=== PATIENT | male | born 1945 | race Caucasian/White ===

== ENCOUNTER 2017-12-02 22:56 | Inpatient (IN) | payer MEDICARE, OTHER ==
[2017-12-02] MEDS: DILTIAZEM 25 MG INJ IV (23:38)
[2017-12-02 23:40] LABS: ADD MAN DIFF? NO
[2017-12-02 23:46] LABS: WHITE BLOOD COUNT 10.3 10^3/ul (4.8-10.8)
[2017-12-02 23:46] LABS: BASOPHIL # 0.1 10^3/ul (0.0-0.1); BASOPHILS % 0.6 % (0.0-2.0); EOSINOPHILS # 0.1 10^3/ul (0.0-0.5); EOSINOPHILS % 1.3 % (0.0-7.0); HEMATOCRIT 50.7 % (42.0-52.0); LYMPHOCYTES # 3.2 10^3/ul (0.8-2.9); LYMPHOCYTES % 30.6 % (15.0-51.0); MEAN CORPUSCULAR HEMOGLOBIN 29.8 pg (29.0-33.0); MEAN CORPUSCULAR HGB CONC 33.5 g/dl (32.0-37.0); MEAN CORPUSCULAR VOLUME 88.9 fl (82.0-101.0); MEAN PLATELET VOLUME 10.4 fl (7.4-10.4); MONOCYTE # 0.9 10^3/ul (0.3-0.9); MONOCYTES % 8.6 % (0.0-11.0); NEUTROPHILS % 57.8 % (39.0-77.0); PLATELET COUNT 266 10^3/UL (140-415); RED CELL DISTRIBUTION WIDTH 13.2 % (11.5-14.5)
[2017-12-03 00:07] LABS: ALANINE AMINOTRANSFERASE 41 IU/L (13-69); ALBUMIN 4.6 g/dl (3.3-4.9); ALBUMIN/GLOBULIN RATIO 1.43; ALKALINE PHOSPHATASE 59 IU/L (42-121); ANION GAP 16 (8-16); ASPARTATE AMINO TRANSFERASE 20 IU/L (15-46); BILIRUBIN,INDIRECT 0.2 mg/dl (0-1.1); BILIRUBIN,TOTAL 0.2 mg/dl (0.2-1.3); BLOOD UREA NITROGEN 16 mg/dl (7-20); CALCIUM 10.1 mg/dl (8.4-10.2); CARBON DIOXIDE 30 mmol/L (21-31); CHLORIDE 99 mmol/L (97-110); CREATININE 1.02 mg/dl (0.61-1.24); GLUCOSE 116 mg/dl (70-220); POTASSIUM 4.1 mmol/L (3.5-5.1); SODIUM 141 mmol/L (135-144); TOTAL PROTEIN 7.8 g/dl (6.1-8.1)
[2017-12-03 00:17] LABS: B-TYPE NATRIURETIC PEPTIDE 129 PG/ML (0-125)
[2017-12-03 00:40] LABS: TROPONIN-I < 0.012 ng/ml (0.00-0.12)
[2017-12-03] MEDS ORDERED: ACETAMINOPHEN 325 MG TAB PO (02:30)
[2017-12-03] MEDS ORDERED: morphine 2 MG INJ IV (02:30)
[2017-12-03] MEDS ORDERED: NITROGLYCERIN (SL) 0.4 MG TAB SL (02:30)
[2017-12-03] MEDS ORDERED: ONDANSETRON 4 MG TAB PO (02:30)
[2017-12-03] MEDS ORDERED: DOCUSATE SODIUM 100 MG CAP PO (02:30)
[2017-12-03] MEDS ORDERED: BISACODYL (EC) 5 MG TAB PO (02:30)
[2017-12-03] MEDS: LORAZEPAM 2 MG INJ IV ×2 (02:43→04:58)
[2017-12-03 05:50] LABS: ADD MAN DIFF? NO
[2017-12-03 05:52] LABS: BASOPHILS % 0.4 % (0.0-2.0); EOSINOPHILS # 0.1 10^3/ul (0.0-0.5); EOSINOPHILS % 1.6 % (0.0-7.0); HEMATOCRIT 46.3 % (42.0-52.0); HEMOGLOBIN 15.4 g/dl (14.0-18.0); LYMPHOCYTES # 2.7 10^3/ul (0.8-2.9); LYMPHOCYTES % 30.2 % (15.0-51.0); MEAN CORPUSCULAR HEMOGLOBIN 29.7 pg (29.0-33.0); MEAN CORPUSCULAR HGB CONC 33.3 g/dl (32.0-37.0); MEAN CORPUSCULAR VOLUME 89.2 fl (82.0-101.0); MEAN PLATELET VOLUME 10.4 fl (7.4-10.4); MONOCYTE # 0.7 10^3/ul (0.3-0.9); MONOCYTES % 7.5 % (0.0-11.0); NEUTROPHIL # 5.3 10^3/ul (1.6-7.5); NEUTROPHILS % 59.4 % (39.0-77.0); PLATELET COUNT 228 10^3/UL (140-415); RED BLOOD COUNT 5.19 10^6/ul (4.70-6.10); RED CELL DISTRIBUTION WIDTH 13.2 % (11.5-14.5)
[2017-12-03 05:52] LABS: WHITE BLOOD COUNT 8.9 10^3/ul (4.8-10.8)
[2017-12-03 06:14] LABS: MAGNESIUM 1.8 mg/dl (1.7-2.5)
[2017-12-03 06:16] LABS: ALANINE AMINOTRANSFERASE 36 IU/L (13-69); ALBUMIN 3.6 g/dl (3.3-4.9); ALBUMIN/GLOBULIN RATIO 1.28; ALKALINE PHOSPHATASE 48 IU/L (42-121); ANION GAP 12 (8-16); ASPARTATE AMINO TRANSFERASE 21 IU/L (15-46); BILIRUBIN,INDIRECT 0.5 mg/dl (0-1.1); BILIRUBIN,TOTAL 0.5 mg/dl (0.2-1.3); BLOOD UREA NITROGEN 15 mg/dl (7-20); CARBON DIOXIDE 27 mmol/L (21-31); CHLORIDE 102 mmol/L (97-110); GLUCOSE 110 mg/dl (70-220); POTASSIUM 3.7 mmol/L (3.5-5.1); SODIUM 137 mmol/L (135-144); TOTAL PROTEIN 6.4 g/dl (6.1-8.1)
[2017-12-03 06:17] LABS: CHOLESTEROL 130 mg/dl (100-200)
[2017-12-03 06:17] LABS: CHOL/HDL RATIO 3.8 RATIO; HDL CHOLESTEROL 34 mg/dl (31-75); LDL CHOLESTEROL,CALCULATED 82 mg/dl; TRIGLYCERIDES 69 mg/dl (0-149)
[2017-12-03 06:27] LABS: CREATINE KINASE < 20 IU/L (23-200)
[2017-12-03 06:30] LABS: CK-MB 0.43 ng/ml (0.0-2.4); TROPONIN-I < 0.012 ng/ml (0.00-0.12)
[2017-12-03 07:41] LABS: HEMOGLOBIN A1C 5.5 % (0-5.9)
[2017-12-03] MEDS: NACL 0.9% 3 ML SYG IV (08:28)
[2017-12-03] MEDS: ASPIRIN 81 MG TAB PO (08:31)
[2017-12-03] MEDS ORDERED: NON-FORMULARY/PATIENT OWN MED (Olmesartan-Amlodipine-HCTZ (Tribenzor) 1 TAB) PO (10:00)
[2017-12-03] MEDS: DRONEDARONE HYDROCHLORIDE 400 MG TAB PO ×2 (11:22→22:27)
[2017-12-03] MEDS: POTASSIUM CHLORIDE (SR) 20 MEQ TAB PO ×2 (11:22→11:27)
[2017-12-03] MEDS: MAGNESIUM SULFATE 1 GM/D5W 100 ML IVPB ×2 (11:25→11:26)
[2017-12-03 13:02] LABS: CREATINE KINASE 20 IU/L (23-200)
[2017-12-03 13:14] LABS: CK INDEX 1.9
[2017-12-03 13:19] LABS: CK-MB 0.37 ng/ml (0.0-2.4); TROPONIN-I < 0.012 ng/ml (0.00-0.12)
[2017-12-03] MEDS: RIVAROXABAN 20 MG TABLET PO (18:47)
[2017-12-03] MEDS: DIGOXIN 500 MCG INJ IV (19:05)
[2017-12-04] MEDS: DRONEDARONE HYDROCHLORIDE 400 MG TAB PO ×2 (09:02→21:31)
[2017-12-04 09:49] LABS: ADD MAN DIFF? NO
[2017-12-04 09:53] LABS: WHITE BLOOD COUNT 11.6 10^3/ul (4.8-10.8)
[2017-12-04 09:53] LABS: BASOPHIL # 0.1 10^3/ul (0.0-0.1); BASOPHILS % 0.4 % (0.0-2.0); EOSINOPHILS # 0.1 10^3/ul (0.0-0.5); EOSINOPHILS % 1.2 % (0.0-7.0); HEMATOCRIT 49.8 % (42.0-52.0); HEMOGLOBIN 16.6 g/dl (14.0-18.0); LYMPHOCYTES # 3.4 10^3/ul (0.8-2.9); MEAN CORPUSCULAR HEMOGLOBIN 30.6 pg (29.0-33.0); MEAN CORPUSCULAR HGB CONC 33.3 g/dl (32.0-37.0); MEAN CORPUSCULAR VOLUME 91.7 fl (82.0-101.0); MEAN PLATELET VOLUME 10.6 fl (7.4-10.4); MONOCYTE # 0.8 10^3/ul (0.3-0.9); NEUTROPHIL # 7.1 10^3/ul (1.6-7.5); NEUTROPHILS % 61.2 % (39.0-77.0); PLATELET COUNT 264 10^3/UL (140-415); RED BLOOD COUNT 5.43 10^6/ul (4.70-6.10); RED CELL DISTRIBUTION WIDTH 13.4 % (11.5-14.5)
[2017-12-04 10:17] LABS: ALANINE AMINOTRANSFERASE 37 IU/L (13-69); ALBUMIN 3.8 g/dl (3.3-4.9); ALBUMIN/GLOBULIN RATIO 1.26; ALKALINE PHOSPHATASE 51 IU/L (42-121); ANION GAP 15 (8-16); ASPARTATE AMINO TRANSFERASE 22 IU/L (15-46); BILIRUBIN,INDIRECT 0.8 mg/dl (0-1.1); BILIRUBIN,TOTAL 0.8 mg/dl (0.2-1.3); BLOOD UREA NITROGEN 22 mg/dl (7-20); CALCIUM 9.5 mg/dl (8.4-10.2); CARBON DIOXIDE 28 mmol/L (21-31); CHLORIDE 102 mmol/L (97-110); CREATININE 1.13 mg/dl (0.61-1.24); GLUCOSE 106 mg/dl (70-220); POTASSIUM 4.5 mmol/L (3.5-5.1); SODIUM 140 mmol/L (135-144); TOTAL PROTEIN 6.8 g/dl (6.1-8.1)
[2017-12-04 10:21] LABS: CREATINE KINASE < 20 IU/L (23-200)
[2017-12-04 10:26] LABS: CK-MB < 0.22 ng/ml (0.0-2.4); TROPONIN-I < 0.012 ng/ml (0.00-0.12)
[2017-12-04 10:27] LABS: B-TYPE NATRIURETIC PEPTIDE 1340 PG/ML (0-125); INR 2.67; PROTIME 29.2 Sec (11.9-14.9); PT RATIO 2.3
[2017-12-04 10:33] LABS: FREE T4 (FREE THYROXINE) 1.35 ng/dl (0.78-2.44)
[2017-12-04] MEDS: MAGNESIUM SULFATE 1 GM/D5W 100 ML IVPB (17:31)
[2017-12-04] MEDS: RIVAROXABAN 20 MG TABLET PO (17:43)
[2017-12-05] MEDS ORDERED: PROPOFOL 20 ML (08:09)
[2017-12-05] MEDS ORDERED: FENTAnyl 50 MCG/ML VIAL (08:10)
[2017-12-05] MEDS: DRONEDARONE HYDROCHLORIDE 400 MG TAB PO (10:56)
[2017-12-05] MEDS ORDERED: METOPROLOL (XL) 25 MG TAB PO (21:00)
== END 2017-12-05 16:20 | disposition home or self-care (01) | DRG 310 ==
LOC: E/R 22:56 → MS4 12-03 01:33
PROC: 5A2204Z Restoration of Cardiac Rhythm, Single (ICD-10-PCS; principal; 2017-12-05 07:20)
DX: I48.0 Paroxysmal atrial fibrillation (principal); I34.1 Nonrheumatic mitral (valve) prolapse; I34.0 Nonrheumatic mitral (valve) insufficiency; I10 Essential (primary) hypertension; E78.5 Hyperlipidemia, unspecified; G89.29 Other chronic pain; Z79.01 Long term (current) use of anticoagulants
CPT/HCPCS: 36415; 71045; 80053; 80061; 82550; 82553; 83036; 83735; 83880; 84439; 84443; 84484; 85025; 85610; 93005; 93306; 93312; 93320; 93325; 96374; 96375; 96376; 99291-25